=== PATIENT | female | born 1970 | race Caucasian/White ===

== ENCOUNTER → 2018-10-23 12:34 | Outpatient (CLI) | payer OTHER, MEDICAID, SELFPAY ==
--- NOTE | 2018-10-23 | DI.CT.S_ITS ---
PROCEDURE: CT ABDOMEN PELVIS W CON INDICATIONS: PELVIC PAIN TECHNIQUE: After the administration of oral and intravenous contrast, 5 mm thick sections acquired from the diaphragms to the symphysis. 5 mm thick coronal and sagittal reformats were performed. For radiation dose reduction, the following was used: automated exposure control, adjustment of mA and/or kV according to patient size. COMPARISON: [facility], CT, ABDOMEN/PELVIS WITHOUT CONTRAS, 10/13/2017, 23:55. FINDINGS: Image quality: Excellent. ABDOMEN: Lung bases: Lung bases are clear. Heart size is normal. Solid organs: Liver is normal in size and enhancement. Gallbladder is within normal limits. Biliary system is non-dilated. Pancreas enhances normally. Spleen is normal in size and enhancement. No adrenal nodules. Kidneys are normal in size and enhancement, without hydronephrosis. Peritoneum and bowel: Stomach, small bowel, and colon loops are normal in caliber and wall thickness. Normal appendix. No free fluid or air. Nodes and vessels: No retroperitoneal or mesenteric adenopathy. Aorta and inferior vena cava are normal in caliber. Miscellaneous: No ventral hernias. PELVIS: Genitourinary: Bladder wall thickness is normal. Miscellaneous: No inguinal hernias or adenopathy. Bones: No suspicious bony lesions. No vertebral body compression fractures. IMPRESSION: 1. No explanation for pelvic pain. 2. Normal appendix. Dictated by: Albert Hatch M.D. on 10/23/2018 at 16:58 Approved by: Albert Hatch M.D. on 10/23/2018 at 17:01
== END ==
PROVIDERS: PCP Family Medicine; Visit Provider Nurse Practitioner Family
DX: R10.2 Pelvic and perineal pain (principal)
CPT/HCPCS: 74177; Q9967

== ENCOUNTER 2025-10-30 17:58 | Emergency (ER) | payer OTHER, SELFPAY ==
[2025-10-30] VITALS (10 sets, daily range): BP systolic 119–152; BP diastolic 70–95; PULSE 90–125; RESP 20; TEMP 36.9; O2SAT 87–97; BMI 22.3
--- NOTE | 2025-10-30 18:17 | DI.RAD.S_ITS ---
PROCEDURE: XR WRIST LT MIN 3V INDICATIONS: fall/deformity TECHNIQUE: 3 views of the wrist were acquired. COMPARISON: [facility], CR, XR WRIST RT MIN 3V, 08/25/2025, 15:22. [facility] ([place]), CR, XR WRIST RT MIN 3V, 07/02/2025, 13:59. [facility], CR, XR WRIST RT MIN 3V, 07/30/2025, 15:27. FINDINGS: Bones: There is an acute, comminuted, impacted fracture of the distal radius with intra-articular involvement and dorsal angulation of the fracture fragments. No definite associated ulnar styloid fracture is seen. Age-appropriate bony degenerative changes are seen. Soft tissues: There is associated soft tissue swelling seen. IMPRESSION: Significant distal radius fracture, with comminution, impaction, and intra- articular involvement. Dictated by: Fito Maki M.D. on 10/30/2025 at 18:06 Approved by: Fito Maki M.D. on 10/30/2025 at 18:08
--- NOTE | 2025-10-30 19:12 | ED.UPPEXIN ---
HPI - Extremity Injury (Upper) General Chief Complaint: Extremity Injury, Upper Stated Complaint: Left Arm Injury Time Seen by Provider: 10/30/25 18:06 Source: patient Mode of arrival: Ambulatory History of Present Illness HPI narrative: Patient is a 55 year old, right-hand dominant, female who presents with acute left arm pain. Past medical history significant for right wrist fracture. She states that she was trying to compress stones some a cartons stepping on them however was thrown off on fell backwards landing on an outstretched hand. She had a crunch then went to purchase a wrist splint and presented to the ED. On the way here she does feel her bones grinding on each other. She denies any chest pain, dyspnea, diaphoresis or lightheadedness per, presyncope prior to fall. Related Data Home Medications ?Medication ?Instructions ?Recorded ?Confirmed No Known Home Medications 06/23/25 08/25/25 Allergies Allergy/AdvReac Type Severity Reaction Status Date / Time No Known Drug Allergies Allergy Verified 08/25/25 15:31 Review of Systems Review of Systems Narrative: See HPI. Patient History Medical History (Updated 10/31/25 @ 02:59 by Elaina Contreras MD) HTN (hypertension) Tobacco use Panic attack Chronic pain of right ankle Chronic pain of left ankle Foot pain Surgical History (Updated 06/23/25 @ 19:37 by Loida Gonzalez MD) Status post tonsillectomy and adenoidectomy Anesthesia S/P left knee surgery S/P foot surgery, left (~2017) Social History Smoking Status: Current every day smoker additional social history: PMHX: BP -- elevated in past -- has been on BP medication panic attack -- medical anxiety. 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 today's BP is off coffee PSHX: knee surgery- dislocated, ankle surgery- crushed left -- FUSED , tonsils medications: none, no supplements. 06/1025 Smoking Status: Current every day smoker tobacco type: cigarettes Alcohol type: beer Exam Narrative Exam Narrative: Vitals: Afebrile, tachycardic, hypertensive, all other vitals within normal range. Gen: Well-developed, well-nourished, no acute distress. Cards: Regular Pulm: Normal work of breathing Abd: Nondistended Ext: Right upper extremity without any abnormalities. Left wrist with obvious deformity, swelling, ecchymosis. 2+ radial pulse. Sensation intact. Neuro: A&O x4, cranial nerves grossly intact, moving all 4 extremities. Psych: Appropriate Initial Vital Signs Initial Vital Signs: Vital Signs Temperature 98.5 F 10/30/25 18:11 Pulse Rate 125 H 10/30/25 18:11 Respiratory Rate 20 10/30/25 18:11 Blood Pressure 143/95 H 10/30/25 18:11 Pulse Oximetry 97 10/30/25 18:11 Oxygen Delivery Method Room Air 10/30/25 18:11 Procedures Orthopedic Fracture Reduction Fracture #1: Time of procedure: 02:52 Time Out Performed: Yes Side: right Fracture Reduction Location: radius Analgesia: hematoma block Technique: direct manipulation Post Reduction X-rays Demonstrate: other (Unchanged on my read) Post-reduction neuro exam: intact Post-reduction vascular exam: intact Splint Applied: Yes Patient Tolerated Procedure: Well Fracture #2: Time of procedure: 05:30 Time Out Performed: Yes Side: left Fracture Reduction Location: radius Analgesia: procedural sedation Technique: direct manipulation Post Reduction X-rays Demonstrate: other (Dorsal angulation of radius) Post-reduction neuro exam: intact Post-reduction vascular exam: intact Splint Applied: Yes Patient Tolerated Procedure: Well Fracture #3: Time of procedure: 04:30 Side: left Fracture Reduction Location: radius Analgesia: other (oral/iv meds) Technique: finger traps Post Reduction X-rays Demonstrate: other (unchanged on my read) Post-reduction neuro exam: intact Post-reduction vascular exam: intact Additional Comments: Fracture reduction appeared unchanged, therefore, no splint was applied. Course Orders Ordered: Discontinued Medications Hydromorphone HCl (Hydromorphone Hcl 0.5 Mg/0.5 Ml Syringe) 0.5 mg IV NOW ONE Stop: 10/30/25 19:12 Last Admin: 10/30/25 22:37 Dose: Not Given Documented By: ALESSIO Hydromorphone HCl (Hydromorphone 1 Mg/Ml Syringe) 1 mg IV NOW ONE Stop: 10/30/25 19:35 Last Admin: 10/30/25 20:10 Dose: 1 mg Documented By: GHISLAINE Hydromorphone HCl (Hydromorphone 1 Mg/Ml Syringe) 1 mg IV NOW ONE Stop: 10/30/25 22:36 Last Admin: 10/30/25 22:41 Dose: 1 mg Documented By: ALESSIO Hydromorphone HCl (Hydromorphone Hcl 0.5 Mg/0.5 Ml Syringe) 0.5 mg IV NOW ONE Stop: 10/31/25 01:44 Last Admin: 10/31/25 01:54 Dose: 0.5 mg Documented By: ITZ Ketamine HCl (Ketamine 500 Mg/5 Ml Inj) 50 mg IV NOW ONE Stop: 10/31/25 05:41 Last Admin: 10/31/25 07:50 Dose: Not Given Documented By: HOWARD Ketamine HCl (Ketamine 500 Mg/5 Ml Inj) 60 mg IV NOW ONE Stop: 10/31/25 06:34 Last Admin: 10/31/25 06:11 Dose: 60 mg Documented By: GHISLAINE Ketorolac Tromethamine (Ketorolac 30 Mg/Ml Vial) 30 mg IV NOW ONE Stop: 10/31/25 01:12 Last Admin: 10/31/25 01:17 Dose: 30 mg Documented By: ITZ Lidocaine HCl (Lidocaine 2% Inj Mdv 20ml) 10 ml INJ INTRA-OP ONE Stop: 10/30/25 21:38 Last Admin: 10/30/25 22:10 Dose: 10 ml Documented By: GHISLAINE Propofol (Propofol 200 Mg/20 Ml Vial) 65 mg 1 mg/kg (65 mg) IV NOW ONE Stop: 10/31/25 05:44 Last Admin: 10/31/25 06:11 Dose: 65 mg Documented By: GHISLAINE Vital Signs Vital signs: Vital Signs - 8 hr 10/30/25 20:19 10/30/25 20:21 10/30/25 20:21 Pulse Rate 114 H 114 H Respiratory Rate 20 20 Blood Pressure 150/85 H Pulse Oximetry 95 96 Oxygen Delivery Method Oxygen Flow Rate 10/30/25 20:30 10/30/25 20:30 10/30/25 21:00 Pulse Rate 112 H Respiratory Rate Blood Pressure 144/83 H 140/70 Pulse Oximetry 95 Oxygen Delivery Method Oxygen Flow Rate 10/30/25 21:00 10/30/25 21:30 10/30/25 21:30 Pulse Rate 98 H 95 H Respiratory Rate Blood Pressure 119/74 Pulse Oximetry 93 95 Oxygen Delivery Method Oxygen Flow Rate 10/30/25 22:00 10/30/25 22:00 10/30/25 22:30 Pulse Rate 92 H Respiratory Rate Blood Pressure 141/73 H 152/74 H Pulse Oximetry 93 Oxygen Delivery Method Oxygen Flow Rate 10/30/25 22:30 10/30/25 23:00 10/30/25 23:00 Pulse Rate 90 94 H Respiratory Rate Blood Pressure 149/70 H Pulse Oximetry 87 L 96 Oxygen Delivery Method Room Air Nasal Cannula Oxygen Flow Rate 2 MDM - Extremity Injury (Upper) Lab Data Labs: Point of Care Testing Test Results Negative Imaging Data Extremity x-ray #1: Radiologist's Impression: PROCEDURE: XR WRIST LT MIN 3V INDICATIONS: fall/deformity TECHNIQUE: 3 views of the wrist were acquired. COMPARISON: [facility], CR, XR WRIST RT MIN 3V, 08/25/2025, 15:22. [facility] ([place]), CR, XR WRIST RT MIN 3V, 07/02/2025, 13:59. [facility], CR, XR WRIST RT MIN 3V, 07/30/2025, 15:27. FINDINGS: Bones: There is an acute, comminuted, impacted fracture of the distal radius with intra-articular involvement and dorsal angulation of the fracture fragments. No definite associated ulnar styloid fracture is seen. Age-appropriate bony degenerative changes are seen. Soft tissues: There is associated soft tissue swelling seen. IMPRESSION: Significant distal radius fracture, with comminution, impaction, and intra-articular involvement. Extremity x-ray #2: Radiologist's Impression: PROCEDURE: XR WRIST LT MIN 3V INDICATIONS: POST REDUCTION TECHNIQUE: 2 views of the wrist were acquired. COMPARISON: [facility], CR, XR WRIST LT MIN 3V, 10/30/2025, 18:35. FINDINGS: Interval closed reduction of distal radius fracture with persistent impaction. Widening of scapholunate interval. Extremity x-ray #3: Radiologist's Impression: PROCEDURE: XR WRIST LT 2V INDICATIONS: radial fracture TECHNIQUE: 1 views of the wrist were acquired. COMPARISON: [facility], CR, XR WRIST LT MIN 3V, 10/31/2025, 1:52. FINDINGS: Interval reduction of distal radius fracture with improved alignment. Extremity x-ray #4: Radiologist's Impression: PROCEDURE: XR WRIST LT 2V INDICATIONS: POST REDUCTION TECHNIQUE: 2 views of the wrist were acquired. COMPARISON: [facility], CR, XR WRIST LT 2V, 10/31/2025, 5:05. FINDINGS: Interval reduction and splinting of distal radius fracture with persistent impaction and dorsal translation of the distal radius. Intra-articular extension of fracture lines. MDM Narrative Medical decision making narrative: Patient is a 55-year-old female who presents with left wrist pain and deformity after a fall. Differential diagnosis: Fractures, dislocation, muscle tear, muscle strain, other. Labs: Not indicated Imagin distal radius fracture with comminution, impaction, and intra-articular involvement EKG: Not indicated Consults: Orthopedics ED course: 709 Patient seen by provider. 0720 Due to the complexity of the fracture, I consulted Dr. Paulino to confirm that splinting and discharge were appropriate. He confirmed that this plan was acceptable. 0230 Close reduction and splinting performed. Please see dedicated procedure note. I compare initial and postreduction films and they appeared unchanged. 0430 Due to my reduction did not appearing successful. We made [place] finger trap with kirlex and allowed gravity to reduce the fracture. On my read on XR, the fracture appeared unchanged.We will attempt reduction under sedation. [address] Paulino and informed him of imaging findings. Was told that it doesn't change management facilitator of requiring splint and outpatient follow up with orthopedics for definitive management. Discharge Plan Departure Patient Disposition: Home Clinical Impression: Closed fracture of distal end of left radius Instructions: DI for Distal Radius Fracture, Moderate Sedation Activity Restrictions/Additional Instructions: You were seen in the emergency department after a fall. In the ED: -- X-ray revealed a fracture of your radius -- Orthopedic surgery was consulted and stated that no emergent surgical intervention was required. They recommended splinting with outpatient follow?up next week. The fracture will eventually require surgical repair. Return to the ED: - If you develop any new or worsening symptoms. Prescriptions: No Action No Known Home Medications Referrals: Chace Paulino MD [Physician, Orthopedic Surgery] Referral Note: comminuted distal left radius fx Loida Trejo PA-C [Primary Care Provider, Medical] Stand Alone Forms: Patient Portal/API
[2025-10-30] MEDS: LIDOCAINE 2% INJ MDV 20ML 10 ML INJ (22:10)
[2025-10-31] VITALS (20 sets, daily range): BP systolic 127–189; BP diastolic 61–108; PULSE 30–115; RESP 15–22; O2SAT 90–97
[2025-10-31] MEDS: KETOROLAC 30 MG/ML VIAL IV (01:17)
--- NOTE | 2025-10-31 02:41 | DI.RAD.S_ITS ---
PROCEDURE: XR WRIST LT MIN 3V INDICATIONS: POST REDUCTION TECHNIQUE: 2 views of the wrist were acquired. COMPARISON: [facility], CR, XR WRIST LT MIN 3V, 10/30/2025, 18:35. FINDINGS: Interval closed reduction of distal radius fracture with persistent impaction. Widening of scapholunate interval. IMPRESSION: As above Dictated by: Aldair Claros M.D. on 10/31/2025 at 8:47 Approved by: Aldair Claros M.D. on 10/31/2025 at 8:48
--- NOTE | 2025-10-31 05:16 | DI.RAD.S_ITS ---
PROCEDURE: XR WRIST LT 2V INDICATIONS: radial fracture TECHNIQUE: 1 views of the wrist were acquired. COMPARISON: [facility], [place], XR WRIST LT MIN 3V, 10/31/2025, 1:52. FINDINGS: Interval reduction of distal radius fracture with improved alignment. IMPRESSION: As above Dictated by: Aldair Claros M.D. on 10/31/2025 at 8:48 Approved by: Aldair Claros M.D. on 10/31/2025 at 8:49
--- NOTE | 2025-10-31 06:05 | DI.RAD.S_ITS ---
PROCEDURE: XR WRIST LT 2V INDICATIONS: POST REDUCTION TECHNIQUE: 2 views of the wrist were acquired. COMPARISON: [facility], CR, XR WRIST LT 2V, 10/31/2025, 5:05. FINDINGS: Interval reduction and splinting of distal radius fracture with persistent impaction and dorsal translation of the distal radius. Intra-articular extension of fracture lines. IMPRESSION: As above Dictated by: Aldair Claros M.D. on 10/31/2025 at 8:49 Approved by: Aldair Claros M.D. on 10/31/2025 at 8:50
[2025-10-31] MEDS: KETAMINE 500 MG/5 ML INJ 60 MG IV (06:11)
--- NOTE | 2025-10-31 07:51 | PC.NURSE ---
agronomy supervisor, Robyn requests this RN does patient discharge. DC VS taken and DC instructions reviewed w/pt. Orthopedics referral discussed. Pt states understanding and is agreeable to DC plan.
== END 2025-10-31 07:54 | disposition home or self-care (01) ==
PROVIDERS: Emergency Provider Student in an Organized Health Care Education/Training Program; PCP Physician Assistant Medical
DX: S52.592A Other fractures of lower end of left radius, initial encounter for closed fracture (principal); W18.31XA Fall on same level due to stepping on an object, initial encounter
CPT/HCPCS: 25605; 36415; 73100; 73110; 96374; 96375; 96376; 99285; J1171; J1885; J2704